=== PATIENT | female | born 1950 | race American Indian/Alaskan Native ===

== ENCOUNTER 2019-06-18 06:31 | Day surgery (SDC) | payer MEDICARE ==
[2019-06-18] MEDS ORDERED: ASPIRIN EC 325 MG TAB PO NR (06:59)
[2019-06-18] MEDS ORDERED: SODIUM CHLORIDE 0.9% 500 ML 500 ML IV SCH (07:00)
[2019-06-18 07:42] LABS: Basophils % (Auto) 0.6 % (0.0-1.8); Eosinophils # (Auto) 0.2 K/mm3 (0.0-0.4); Eosinophils % (Auto) 2.8 % (0.0-4.3); Hematocrit 42.9 % (30.3-42.9); Hemoglobin 14.3 gm/dl (10.1-14.3); Lymphocytes # (Auto) 2.5 K/mm3 (1.2-5.4); Lymphocytes % (Auto) 42.7 % (13.4-35.0); Mean Corpuscular HGB Conc 33 % (30-34); Mean Corpuscular Volume 90 fl (79-97); Monocytes # (Auto) 0.3 K/mm3 (0.0-0.8); Monocytes % (Auto) 4.3 % (0.0-7.3); Platelet Count 261 K/mm3 (140-440); Red Blood Count 4.78 M/mm3 (3.65-5.03); Red Cell Distribution Width 13.5 % (13.2-15.2)
[2019-06-18 07:54] LABS: BUN/Creatinine Ratio 20; Blood Urea Nitrogen 18 mg/dL (7-17); Calcium 9.9 mg/dL (8.4-10.2); Hemolysis Index 9; INR 1.03 (0.87-1.13); Partial Thromboplastin Time 28.8 Sec. (24.2-36.6)
[2019-06-18] MEDS ORDERED: HEPARIN/NS 5000 UNIT/500ML 1,000 ML IR ONE (08:32)
[2019-06-18] MEDS ORDERED: LIDOCAINE (2%) 20 MG/1 ML VIAL 20 ML MDV INFILTRATI ONE (08:33)
[2019-06-18] MEDS ORDERED: fentaNYL 100 MCG/2 ML INJ ONE (08:33)
[2019-06-18] MEDS ORDERED: MIDAZOLAM 2 MG/2 ML INJ ONE (08:33)
[2019-06-18] MEDS ORDERED: VERAPAMIL 5 MG/2 ML INJ ONE (08:33)
[2019-06-18] MEDS ORDERED: HEPARIN 10,000 UNITS/10 ML VIAL ONE (08:33)
[2019-06-18] MEDS ORDERED: NITROGLYCERIN SYRINGE 3 ML ONE (08:33)
--- NOTE | 2019-06-18 09:25 | Short Stay Summary ---
Short Stay Documentation Date of service: 06/18/19 - History H&P: obtained from office - Allergies and Medications Current Medications: Allergies codeine Allergy (Intermediate, Verified 06/18/19 07:40) Vomiting Home Medications Medication Instructions Recorded Confirmed Last Taken Type Aspirin [Adult Aspirin] 81 mg PO DAILY 06/17/19 06/18/19 06/17/19 History ISOSORBIDE MONOnitrate [Imdur ER] 30 mg PO DAILY 06/17/19 06/17/19 Unknown History Loratadine [Claritin] 10 mg PO DAILY 06/17/19 06/18/19 06/13/19 History 10 mg Metoprolol Succinate [Toprol Xl] 25 mg PO DAILY 06/17/19 06/17/19 Unknown History Nitroglycerin [Nitrostat] 0.4 mg SL Q5M PRN 06/17/19 06/18/19 06/17/19 19:00 History 0.4mg hydroCHLOROthiazide [HCTZ] 25 mg PO QDAY 06/17/19 06/18/19 06/17/19 History 25 mg Active Medications Sodium Chloride (Nacl 0.9% 500 Ml) 500 mls @ 50 mls/hr IV DIRECT MEY Stop: 06/18/19 16:59 Last Admin: 06/18/19 07:37 Dose: 50 mls/hr Documented by: - Physical exam General appearance: no acute distress Integumentary: no rash HEENT: Atraumatic Lungs: Clear to auscultation Breasts: deferred Heart: Regular rate Gastrointestinal: normal Female Genitourinary: deferred Rectal Exam: deferred Extremities: no ischemia Neurological: Normal gait - Brief post op/procedure progress note Date of procedure: 06/18/19 Pre-op diagnosis: Stable angina Post-op diagnosis: same Procedure: LHC and LV gram Anesthesia: MAC Findings: See report Surgeon: RIVER GANN Estimated blood loss: none Pathology: none Condition: stable - Hospital course Hospital course: Uneventful - Disposition Condition at discharge: Good Disposition: DC-01 TO HOME OR SELFCARE Short Stay Discharge Plan Activity: advance as tolerated Weight Bearing Status: Weight Bear as Tolerated Diet: low fat, low cholesterol, low salt Follow up with: RC HADDAD MD [Primary Care Provider] - 7 Days
--- NOTE | 2019-06-18 09:25 | Cardiac Catherization Report ---
LEFT HEART CATH ORDERING PHYSICIAN: Ratna Ruth MD INDICATION FOR PROCEDURE: Stable angina. PROCEDURES PERFORMED: Selective left and right coronary angiography and left ventriculography. DESCRIPTION OF PROCEDURE: After obtaining the consent, the patient was draped using sterile technique. A 2% lidocaine was injected into the right wrist. A 6-[place]ian vascular sheath was inserted into the right radial artery. A 6-[place] JL3.5 catheter was used to selectively engage left coronary artery. A 6-[place] JR4 catheter was used to selectively engage the right coronary artery. A 6-[place] JR4 catheter was used to hand inject the left ventriculogram. No complications occurred during the procedure. Hemostasis was achieved at the end of the procedure using manual pressure. SPECIMEN REMOVED: None. SEDATION ADMINISTERED: 1 mg of IV Versed and 50 mcg of IV fentanyl. PHYSICIAN-PATIENT [id number] SEDATION START TIME 8:49 a.m. PHYSICIAN-PATIENT MELD-WL-MEDM SEDATION STOP TIME: 9:03 a.m. Total sedation time is 14 minutes. FINDINGS: HEMODYNAMICS: Aortic pressure 103/71, LV systolic pressure 107 mmHg, LV end diastolic pressure 13 mmHg. No significant gradient was noted across left ventricular outflow tract. CARDIAC STRUCTURES: The left ventricle is normal in size and systolic function, left ventricular ejection fraction is estimated at 55%. CORONARY ANATOMY: 1. This is a right dominant circulation. 2. The left main has mild luminal irregularities. 3. The LAD has mild luminal irregularities. 4. Left circumflex artery has mild luminal irregularities. 5. The right coronary artery is a dominant vessel with mild luminal irregularities. IMPRESSION: 1. Mild diffuse nonobstructive coronary artery disease. 2. Normal left ventricular ejection fraction. 3. LVEDP measured at 13 mmHg. RECOMMENDATIONS: Continue medical therapy and risk factor modification. Follow up in the office. DISPOSITION: Home. DISPOSITION STATUS: Stable. JOB# [id number] FANTASMA/TYRONE
[2019-06-18 12:10] VITALS: BP 99/66
== END 2019-06-18 12:25 | disposition home or self-care (01) ==
LOC: CATHLABREC 06:31
PROVIDERS: ATTEND Internal Medicine
DX: I25.118 Atherosclerotic heart disease of native coronary artery with other forms of angina pectoris (principal); I10 Essential (primary) hypertension; G47.30 Sleep apnea, unspecified; M19.90 Unspecified osteoarthritis, unspecified site; Z90.49 Acquired absence of other specified parts of digestive tract; Z80.8 Family history of malignant neoplasm of other organs or systems; Z88.5 Allergy status to narcotic agent; Z79.899 Other long term (current) drug therapy; Z79.82 Long term (current) use of aspirin; Z98.49 Cataract extraction status, unspecified eye; Z83.3 Family history of diabetes mellitus; Z82.49 Family history of ischemic heart disease and other diseases of the circulatory system
CPT/HCPCS: 36415; 80048; 85025; 85610; 85730; 93005; 93010; 93458; 99156; C1894; J1644; J2250; J3010; J7040; Q9967